=== PATIENT | male | born 1950 | race Caucasian/White ===

== ENCOUNTER 2017-11-18 09:44 | Emergency (ER) | payer OTHER ==
--- NOTE | 2017-11-18 10:03 | EDPHY ---
H & P Time Seen by Provider: 11/18/17 10:02 HPI/ROS: CHIEF COMPLAINT: Coughing since Friday in short of breath HISTORY OF PRESENT ILLNESS: Patient and his arrived Friday from [place] by airplane. On Friday evening started having congestion and cold symptoms with increasing trouble breathing and worsening cough. He only has some generalized chest pain with coughing. Not associated with fever chills or leg swelling. No sputum production or hemoptysis. Symptoms moderate to severe now and a little bit worse with exertion. He does have chronic right leg swelling for which he is on prophylactic penicillin with previous multiple episodes of cellulitis. REVIEW OF SYSTEMS: Eye: no change in vision ENT: no sore throat Cardiac: HPI, no exertional chest pain and no chest pain unless he is coughing Pulmonary: HPI Abdomen: no vomiting, diarrhea, abdominal pain Musculoskeletal: Chronic right leg swelling after scorpion sting in the past Skin: no rash Neuro: no headache Constitutional: no fever : no urinary symptoms A comprehensive 10 point review of systems is otherwise negative aside from elements mentioned in the history of present illness. PAST MEDICAL HISTORY: Right leg chronic swelling, hypertension, gout. Social history: Visiting from [place], nonsmoker General Appearance: Alert and conversant, cooperative. Eyes: No scleral icterus. ENT, Mouth: Normal mucous membranes. Respiratory: Crackles and rhonchi in the right lower lung, no wheezing or rales. Cardiovascular: Regular rate and rhythm. Gastrointestinal: Abdomen is soft and non tender. Neurological: Alert, face symmetric, normal motor and sensory in extremities. Skin: Warm and dry, no rashes. Musculoskeletal: No peripheral edema. Psychiatric: Not agitated. Emergency Department course/MDM: Plan EKG chest x-ray D-dimer and troponin. 1253: Results discussed, very wheezy now but feels better; steroids and nebs discussed and consented. Plan to discharge patient with steroids and albuterol MDI, antibiotics and anticoagulation not indicated. Chest x-ray report noted possible infiltrate but CT shows atelectasis only. Smoking Status: Never smoked Constitutional: Initial Vital Signs Temperature (C) 37.6 C 11/18/17 09:49 Heart Rate 108 H 11/18/17 09:49 Respiratory Rate 16 11/18/17 09:49 Blood Pressure 186/125 H 11/18/17 09:49 O2 Sat (%) 95 11/18/17 09:49 O2 Delivery Mode Room Air Allergies/Adverse Reactions: No Known Allergies Allergy (Unverified 11/18/17 09:48) Home Medications: Medication Instructions Recorded Albuterol Hfa Anes Only [Proair 2 puffs IH QID #1 mdi 11/18/17 Hfa Icu (*)] Edarbyclor 40-12.5 mg Tablet 11/18/17 Penicillin VK 11/18/17 ULORIC 11/18/17 predniSONE [prednisone 20mg (RX)] 20 mg PO Q12 #15 tab 11/18/17 Medical Decision Making - Diagnostics EKG Interpretation: 12-lead EKG interpreted by me; official reading is in computer system. My interpretation is sinus rhythm with left atrial enlargement, no ischemic changes. Imaging Results: Imaging Impressions Chest X-Ray 11/18/17 10:31 Impression: Bronchitis with a patchy lower lobe retrocardiac infiltrate. Chest/Thorax CTA 11/18/17 11:51 Impression: 1. Negative for acute pulmonary embolus. 2. 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 Findings and recommendations discussed with YUDELKA PHOENIX at [facility], 11/18/2017. Imaging: Discussed imaging studies w/ crew caller Radiologist Differential Diagnosis: Differential diagnosis considered for shortness of breath including but not limited to pulmonary infectious process, COPD, asthma, pulmonary embolus and congestive heart failure. - Data Points Laboratory Results: Laboratory Results 11/18/17 10:15 11/18/17 10:15 11/18/17 11/18/17 11/18/17 10:18 10:15 10:15 WBC 8.74 10^3/uL 10^3/uL (3.80-9.50) RBC 5.81 10^6/uL 10^6/uL (4.40-6.38) Hgb 17.0 g/dL g/dL (13.7-17.5) Hct 50.6 % % (40.0-51.0) MCV 87.1 fL fL (81.5-99.8) MCH 29.3 pg pg (27.9-34.1) MCHC 33.6 g/dL g/dL (32.4-36.7) RDW 13.7 % % (11.5-15.2) Plt Count 235 10^3/uL 10^3/uL (150-400) MPV 10.1 fL fL (8.7-11.7) Neut % (Auto) 67.4 % % (39.3-74.2) Lymph % (Auto) 16.5 % % (15.0-45.0) Carlton % (Auto) 12.4 % % (4.5-13.0) Eos % (Auto) 2.9 % % (0.6-7.6) Baso % (Auto) 0.6 % % (0.3-1.7) Nucleat RBC Rel Count 0.0 % % (0.0-0.2) Absolute Neuts (auto) 5.90 10^3/uL 10^3/uL (1.70-6.50) Absolute Lymphs (auto) 1.44 10^3/uL 10^3/uL (1.00-3.00) Absolute Monos (auto) 1.08 10^3/uL H 10^3/uL (0.30-0.80) Absolute Eos (auto) 0.25 10^3/uL 10^3/uL (0.03-0.40) Absolute Basos (auto) 0.05 10^3/uL 10^3/uL (0.02-0.10) Absolute Nucleated RBC 0.00 10^3/uL 10^3/uL (0-0.01) Immature Gran % 0.2 % % (0.0-1.1) Immature Gran # 0.02 10^3/uL 10^3/uL (0.00-0.10) D-Dimer Sodium 141 mEq/L mEq/L (135-145) Potassium 3.9 mEq/L mEq/L (3.3-5.0) Chloride 102 mEq/L mEq/L (97-110) Carbon Dioxide 26 mEq/l mEq/l (22-31) Anion Gap 13 mEq/L mEq/L (8-16) BUN 23 mg/dL mg/dL (7-23) Creatinine 1.5 mg/dL H mg/dL (0.7-1.3) Estimated GFR 47 Glucose 105 mg/dL H mg/dL (70-100) Calcium 9.7 mg/dL mg/dL (8.5-10.4) POC Troponin I 0.01 ng/mL ng/mL (0.00-0.08) 11/18/17 10:15 WBC RBC Hgb Hct MCV MCH MCHC RDW Plt Count MPV Neut % (Auto) Lymph % (Auto) Carlton % (Auto) Eos % (Auto) Baso % (Auto) Nucleat RBC Rel Count Absolute Neuts (auto) Absolute Lymphs (auto) Absolute Monos (auto) Absolute Eos (auto) Absolute Basos (auto) Absolute Nucleated RBC Immature Gran % Immature Gran # D-Dimer 0.74 ug/mLFEU H ug/mLFEU (0.00-0.50) Sodium Potassium Chloride Carbon Dioxide Anion Gap BUN Creatinine Estimated GFR Glucose Calcium POC Troponin I Medications Given: Discontinued Medications Albuterol (Proventil Neb) 3 ml IH EDNOW ONE Stop: 11/18/17 12:54 Last Admin: 11/18/17 13:25 Dose: 3 ml Albuterol/Ipratropium (Duoneb) 3 ml IH EDNOW ONE Stop: 11/18/17 11:52 Last Admin: 11/18/17 12:15 Dose: 3 ml Sodium Chloride (Ns) 1,000 mls @ 0 mls/hr IV ONCE ONE; Wide Open PRN Reason: Protocol Stop: 11/18/17 10:32 Last Admin: 11/18/17 11:10 Dose: 1,000 mls Methylprednisolone Sodium Succinate (Solu-Medrol) 125 mg IVP EDNOW ONE Stop: 11/18/17 12:54 Last Admin: 11/18/17 13:25 Dose: 125 mg Point of Care Test Results: Chemistry 11/18/17 10:18 POC Troponin I 0.01 ng/mL ng/mL (0.00-0.08) Departure - Departure Disposition: Home, Routine, Self-Care Clinical Impression: Acute bronchitis Qualifiers: Bronchitis organism: unspecified organism Qualified Code(s): J20.9 - Acute bronchitis, unspecified Condition: Good Instructions: Bronchospasm (ED) Additional Instructions: No pneumonia or blood clot in your lungs on CT scan. Referrals: AFIA LANDRY [Other] - As per Instructions Prescriptions: Albuterol Hfa Anes Only [Proair Hfa Icu (*)] 2 puffs IH QID #1 mdi predniSONE [prednisone 20mg (RX)] 20 mg PO Q12 #15 tab
[2017-11-18] MEDS ORDERED: NS 1,000 ML IV ONE (10:31)
--- NOTE | 2017-11-18 10:37 | CPEKG ---
Test Reason : OPEN Blood Pressure : / mmHG Vent. Rate : 096 BPM Atrial Rate : 096 BPM P-R Int : 201 ms QRS Dur : 087 ms QT Int : 344 ms P-R-T Axes : 041 -04 040 degrees QTc Int : 435 ms Sinus rhythm Probable left atrial enlargement Confirmed by Jarek Restrepo ([id number]) on 11/18/2017 10:37:24 AM Referred By: Confirmed By:Jarek Restrepo
[2017-11-18 11:44] LABS: PLATELET COUNT 235 10^3/uL (150-400)
[2017-11-18] MEDS ORDERED: IPRATROPIUM/ALBUTEROL 3 ML DEYVIAL IH ONE (11:51)
[2017-11-18] MEDS ORDERED: IOPAMIDOL (ISOVUE 370) 100 ML BTL IV ONE (11:55)
[2017-11-18] MEDS ORDERED: ALBUTEROL 3 ML DEYVIAL IH ONE (12:53)
[2017-11-18] MEDS ORDERED: methylPREDNISolone SOD SUCC 125 MG/2 ML VIAL IVP ONE (12:53)
[2017-11-18 13:54] VITALS: BP 163/74
== END 2017-11-18 13:55 | disposition home or self-care (01) ==
DX: J20.9 Acute bronchitis, unspecified (principal); I10 Essential (primary) hypertension
CPT/HCPCS: 84484-PO; 96374; J2930; J7613; Q9967